=== PATIENT | female | born 1965 | race Two or more races ===

== ENCOUNTER 2023-02-28 06:00 | Day surgery (SDC) | payer OTHER ==
[2023-02-23 14:34] VITALS: BMI 22.3
[2023-02-28] MEDS ORDERED: ceFAZolin SODIUM 1 GM VIAL IVPB ONE ×2 (14:15→14:20)
[2023-02-28] MEDS ORDERED: BUPIVACAINE HCL/PF 0.5% (5MG/ML) 10 ML VIAL IJ ONE (14:33)
[2023-02-28] MEDS ORDERED: LIDOCAINE HCL 1%, 10 MG/ML (20ML VIAL) INF ONE (14:33)
[2023-02-28] MEDS ORDERED: oxyCODONE HCL 5 MG TABLET PO PRN (15:28)
[2023-02-28] MEDS ORDERED: LACTATED RINGERS SOLUTION 1,000 ML IV SCH (15:30)
[2023-02-28 17:31] VITALS: RESP 18
[2023-02-28 17:53] VITALS: BP 133/61; PULSE 54; TEMP 97.7
== END 2023-02-28 17:53 | disposition home or self-care (01) ==
LOC: JASU-SURG 06:00
PROVIDERS: ATTEND Surgery
PROC: 0HBT0ZZ Excision of Right Breast, Open Approach (ICD-10-PCS; principal; 2023-02-28 12:00)
DX: N60.91 Unspecified benign mammary dysplasia of right breast (principal); N60.11 Diffuse cystic mastopathy of right breast
CPT/HCPCS: 19281; 19282; 76098-TC-FY; 88307-TC; 88342-TC; 94760